=== PATIENT | male | born 1965 | race Caucasian/White ===

== ENCOUNTER → 2016-03-23 | Outpatient (CLI) | payer OTHER ==
[~2016-03-23] MED LIST: ASPI81TA28 PO; HYDR-5688 PO; MRP5 PO; RBX500 PO; SIMV10TA2 PO; ZOLP10TA PO
[2016-03-23 10:56] LABS: BASO % 0.2 %; BASO ABS # 0.01 K/uL (0-0.2); COMPLETE YES; EOS % 4.3 %; HEMATOCRIT 48.7 % (42-52); IG% 0.2 %; LYMPH % 25.5 %; LYMPH ABS # 1.35 K/uL (1.2-3.4); MEAN CORPUSCULAR HEMOGLOBIN 29.1 pg (25-34); MEAN CORPUSCULAR HGB CONC 33.5 g/dl (32-36); MEAN PLATELET VOLUME 11.8 fL (7.4-10.4); NEUT % 62.8 %; PLATELET COUNT 219 K/uL (130-400)
[2016-03-23 11:16] LABS: ALT/SGPT 22 U/L (12-78); AST/SGOT 14 U/L (15-37); BLOOD UREA NITROGEN 16 mg/dl (7-18); BUN/CREATININE RATIO 13.3 (10-20); CALCIUM 9.2 mg/dl (8.5-10.1); CARBON DIOXIDE 29 mmol/L (21-32); CHLORIDE 106 mmol/L (98-107); CHOLESTEROL 204 mg/dl (0-200); GLUCOSE 87 mg/dl (70-99); MAGNESIUM 2.2 mg/dl (1.8-2.4); POTASSIUM 4.7 mmol/L (3.5-5.1); SODIUM 142 mmol/L (136-145); TRIGLYCERIDES 73 mg/dl (0-150); VERY LOW DENSITY LIPOPROT CALC 15 mg/dl
[2016-03-23 11:24] LABS: ALB/GLOB RATIO 1.3 (0.9-2); ALKALINE PHOSPHATASE 39 U/L (45-117); CHOLESTEROL/HDL RATIO 4.1; FERRITIN 84.3 ng/ml (8.0-388.0); HDL CHOLESTEROL 50 mg/dl; LDL CHOLESTEROL CALCULATED 139 mg/dl
== END | disposition home or self-care (01) ==
LOC: C.LABBC 07:25
PROVIDERS: ATTEND Family Medicine
DX: E78.00 Pure hypercholesterolemia, unspecified (principal); R53.83 Other fatigue

== ENCOUNTER → 2016-05-28 | Day surgery (SDC) | payer OTHER ==
[2016-05-13 11:41] VITALS: Ht 172.7 cm; Wt 84.1 kg
[~2016-05-28] VITALS: Ht 172.7 cm; Wt 84.1 kg
[~2016-05-28] MED LIST changes: -ASPI81TA28 PO; +ATROPINE SULFATE 0.1 MG/ML 5ML SYR IV PRN; +BUPIVACAINE/EPINEPHRINE 0.5% MPF 1:200,000 30 ML VIAL ONE; +CEFAZOLIN 2000 MG/60 ML D5W IV SCH; +DEXAMETHASONE SOD INJ 4 MG/ML VIAL IV PRN; +DEXAMETHASONE SOD INJ 4 MG/ML VIAL ONE; +EpHEDrine SULFATE INJ 50 MG/ML AMP IV PRN; +FENTANYL CITRATE INJ 50 MCG/1 ML 2 ML VIAL IV PRN; +FENTANYL CITRATE INJ 50 MCG/1 ML 2 ML VIAL ONE; +HYDROCODONE/ACETAMOPHEN 5/325MG TAB PO PRN; +KETOROLAC TROMETHAMINE 30 MG/ML VIAL IV. PRN; +LABETALOL HCL IV 5 MG/ML 20ML IV PRN; +LACTATED RINGER'S 1000ML 1,000 ML IV SCH; +LIDOCAINE HCL 2% 2 ML VIAL (20MG/ML) ONE; +METOCLOPRAMIDE HCL INJ 5 MG/ML 2 ML VIAL IV PRN; +MIDAZOLAM HCL 1 MG/ML 2ML VIAL ONE; +MoRPHine SULFATE 10 MG/ML CARP/VIAL IV PRN; +ONDANSETRON INJ 2 MG/ML 2 ML VIAL IV PRN; +ONDANSETRON INJ 2 MG/ML 2 ML VIAL ONE; +PHENYLEPHRINE 100MCG/ML 5ML SYR IV PRN; +PROPOFOL IV EMULSION 10 MG/ML 20 ML VIAL IV ONE; -RBX500 PO; +SODIUM CHLORIDE 0.9% 1000ML 1,000 ML IV SCH; -ZOLP10TA PO
--- NOTE | 2016-05-28 09:22 | History & Physical Bridge Note ---
H&P Re-Evaluation Bridge Note: I have examined the patient, reviewed the History & Physical and in the interval since the performance of the History & Physical I have noted the following changes of clinical significance: No changes noted
--- NOTE | 2016-05-28 09:25 | Discharge Instructions-SurgCtr ---
Discharge Instructions Date of Service May 28, 2016. Visit Reason for Visit: Multiple Lipomas Bilateral Arms & Legs Discharge Discharge Diagnosis / Problem: multiple soff tissue masses/lipomas Discharge Goals Goal(s): Decrease discomfort, Improve function, Diagnostic testing, Prevent Disease Progression Activity Recommendations Activity Limitations: as noted below Lifting Limitations: gradually increase as tolerated Exercise/Sports Limitations: until after follow-up appointment Shower/Bathe: no limitations Anesthesia . Post Anesthesia Instructions: If you have had General Anesthesia or IV Sedation: * Do not drive today. * Resume driving when surgeon permits. * Do not make important decisions or sign legal documents today. * Call surgeon for: 1. Temperature elevations greater than 101 degrees F. 2. Uncontrollable pain. 3. Excessive bleeding. 4. Persistent nausea and vomiting. 5. Medication intolerance (nausea, vomiting or rash). * For nausea and vomiting use only clear liquids such as: tea, soda, bouillon until nausea subsides, then gradually increase diet as tolerated. * If you have any concerns or questions, call your surgeon's office. If physician is unavailable and it is an emergency, call 911 or go to the nearest emergency room. . Instructions / Follow-Up Instructions / Follow-Up f/u with dr. solorio in 1-2 weeks. call [phone] for any questions/ concerns Diet Recommendations Home Diet: resume previous diet Pending Studies Studies pending at discharge: yes List of pending studies: path report Medical Emergencies . Who to Call and When: Medical Emergencies: If at any time you feel your situation is an emergency, please call 911 immediately. . Non-Emergent Contact Non-Emergency issues call your: Primary Care Provider, Surgeon Call Non-Emergent contact if: wound has increased drainage, wound has increased redness, wound has increased pain . . "Provider Documentation" section prepared by Ebenezer Solorio.
--- NOTE | 2016-05-28 11:50 | Medical Student: [facility] ---
Immediate Operative Summary Operative Date May 28, 2016. Pre-Operative Diagnosis Multiple Lipomas Post-Operative Diagnosis Same Procedure(s) Performed Excision of multiple lipomas of bilateral arms and legs. Surgeon Dr. Solorio Daylight Driller Surgeon(s) None Estimated Blood Loss 20 cc Findings 5 Lipomas Right Arm 5 Lipomas Left Arm 3 Lipomas Right Leg 1 Lipoma Left Leg Fluids (cc crystalloids) 1500 cc Specimens Right Arm Lipomas x5 Right Leg Lipomas x3 Left Leg Lipoma Left Arm Lipomas x5 Drains None Anesthesia General Complication(s) None Disposition Recovery Room / PACU
--- NOTE | 2016-05-28 11:52 | [facility] Operative Report ---
Operative Report Operative Date May 28, 2016. Pre-Operative Diagnosis Multiple Lipomas bilateral arms and legs Post-Operative Diagnosis as above Procedure(s) Performed excision of multiple lipomas of b/l arms/legs times 14 ranging in size from 1.5 cm to [address] Solorio Animal Shelter Supervisor Surgeon(s) Brittany Hernadez PA-C Estimated Blood Loss 20ML Findings benign appearing lipomas times 14 Specimens A. Left Arm Lipomas x5 B. Left Leg Lipoma x1 C. Right Arm Lipomas x5 D. Right Leg Lipomas x3 Anesthesia LMA Complication(s) None Disposition Recovery Room / PACU I attest to the content of the Intraoperative Record and any orders documented therein. Any exceptions are noted below.
--- NOTE | 2016-05-28 12:18 | Anesthesia Progress Nt - [facility] ---
Anesthesia Post Op Note Date & Time May 28, 2016 at 12:17 Vital Signs Pain Intensity: 0 Vital Signs Past 12 Hours Date Time Temp Pulse Resp B/P Pulse Ox O2 Delivery O2 Flow Rate FiO2 05/28/16 11:47 36.3 57 16 115/67 97 Diffusion Mask 05/28/16 08:15 36.9 64 18 109/84 97 Room Air Notes Mental Status: alert / awake / arousable, participated in evaluation Pt Amnestic to Procedure: Yes Nausea / Vomiting: adequately controlled Pain: adequately controlled Airway Patency, RR, SpO2: stable & adequate BP & HR: stable & adequate Hydration State: stable & adequate Anesthetic Complications: no major complications apparent
--- NOTE | 2016-05-28 12:23 | OPERATIVE REPORT ---
DATE OF OPERATION: 05/28/2016 PREOPERATIVE DIAGNOSIS: Symptomatic lipomas of bilateral arms and bilateral legs totaling 14. POSTOPERATIVE DIAGNOSIS: Same ranging in size from 1.5 cm to 5 cm. PROCEDURE: Excision of multiple lipomas of bilateral arms and legs x14. Left lower arm: 1.5 cm, 1.5 cm, 2 cm, 2.5 cm. Right lower arm: 1.5 cm, 1.5 cm, 2.0 cm, 1.5 cm , 1.5 cm. Left thigh: 2 cm. Right thigh: 1.5 cm, 5 cm, 3 cm. SURGEON: Dr. Solorio. EMPLOYMENT ADVISOR: Patricia Hernadez PA-C. ESTIMATED BLOOD LOSS: Approximately 20 mL. COMPLICATIONS: No immediate. ANESTHESIA: General laryngeal mask airway. OPERATIVE NOTE: After informed consent was obtained, the patient was taken to the operating suite and placed in supine position. We began by prepping and draping by side. We began by prepping and draping the left leg and left arm. Each lipoma was taken out and closed identically. They numbered 5 on the left arm, 1 on the left leg, 5 on the right arm and 3 on the right leg. They measured in size from 1.5 cm to 5 cm. We would find the premarked and palpable lesion and make a direct linear incision directly over top of it. Soft tissue was opened using electrocautery as well as the capsule around the lipomas. The lipomas were all superficial and encapsulated popped right out of the skin after making incision. We would then use electrocautery to detach it from the base and they would be sent to pathology. The wound would then be irrigated and closed using 3-0 Monocryl in an interrupted subcuticular fashion. Marcaine 0.5% with epinephrine would then be injected around the area for postoperative analgesia and Dermabond glue used as a dressing. Again, all 14 of the lesions were removed identically. Once we were finished the patient was awakened, LMA was removed and the patient was transferred to recovery in stable condition. I attest to the content of the Intraoperative Record and any orders documented therein. Any exceptions are noted below. KAILA
[2016-05-28 12:40] VITALS: TEMP 36.4
[2016-05-28 13:05] VITALS: BP 122/76; PULSE 58; O2SAT 99
== END | disposition home or self-care (01) ==
LOC: X.SURG 08:04
PROVIDERS: ATTEND Surgery
DX: D17.21 Benign lipomatous neoplasm of skin and subcutaneous tissue of right arm (principal); D17.22 Benign lipomatous neoplasm of skin and subcutaneous tissue of left arm; D17.23 Benign lipomatous neoplasm of skin and subcutaneous tissue of right leg; D17.24 Benign lipomatous neoplasm of skin and subcutaneous tissue of left leg; E78.5 Hyperlipidemia, unspecified; M79.9 Soft tissue disorder, unspecified; E78.00 Pure hypercholesterolemia, unspecified; G25.81 Restless legs syndrome; G47.30 Sleep apnea, unspecified; E55.9 Vitamin D deficiency, unspecified

== ENCOUNTER → 2017-03-31 | Outpatient (CLI) | payer OTHER ==
[~2017-03-31] MED LIST changes: -ATROPINE SULFATE 0.1 MG/ML 5ML SYR IV PRN; -BUPIVACAINE/EPINEPHRINE 0.5% MPF 1:200,000 30 ML VIAL ONE; -CEFAZOLIN 2000 MG/60 ML D5W IV SCH; -DEXAMETHASONE SOD INJ 4 MG/ML VIAL IV PRN; -DEXAMETHASONE SOD INJ 4 MG/ML VIAL ONE; -EpHEDrine SULFATE INJ 50 MG/ML AMP IV PRN; -FENTANYL CITRATE INJ 50 MCG/1 ML 2 ML VIAL IV PRN; -FENTANYL CITRATE INJ 50 MCG/1 ML 2 ML VIAL ONE; -HYDR-5688 PO; -HYDROCODONE/ACETAMOPHEN 5/325MG TAB PO PRN; -KETOROLAC TROMETHAMINE 30 MG/ML VIAL IV. PRN; -LABETALOL HCL IV 5 MG/ML 20ML IV PRN; -LACTATED RINGER'S 1000ML 1,000 ML IV SCH; -LIDOCAINE HCL 2% 2 ML VIAL (20MG/ML) ONE; -METOCLOPRAMIDE HCL INJ 5 MG/ML 2 ML VIAL IV PRN; -MIDAZOLAM HCL 1 MG/ML 2ML VIAL ONE; -MoRPHine SULFATE 10 MG/ML CARP/VIAL IV PRN; -ONDANSETRON INJ 2 MG/ML 2 ML VIAL IV PRN; -ONDANSETRON INJ 2 MG/ML 2 ML VIAL ONE; -PHENYLEPHRINE 100MCG/ML 5ML SYR IV PRN; -PROPOFOL IV EMULSION 10 MG/ML 20 ML VIAL IV ONE; -SODIUM CHLORIDE 0.9% 1000ML 1,000 ML IV SCH
[2017-03-31 11:39] LABS: ALBUMIN 3.9 gm/dl (3.4-5.0); ALT/SGPT 29 U/L (12-78); AST/SGOT 19 U/L (15-37); BLOOD UREA NITROGEN 17 mg/dl (7-18); CARBON DIOXIDE 29 mmol/L (21-32); GLUCOSE 91 mg/dl (70-99); POTASSIUM 4.4 mmol/L (3.5-5.1); SODIUM 140 mmol/L (136-145)
[2017-03-31 11:42] LABS: ALKALINE PHOSPHATASE 39 U/L (45-117); CHOLESTEROL 217 mg/dl (0-200); LDL CHOLESTEROL CALCULATED 159 mg/dl; TOTAL PROTEIN 6.8 gm/dl (6.4-8.2)
== END | disposition home or self-care (01) ==
LOC: C.LABBC 07:07
PROVIDERS: ATTEND Nurse Practitioner Family
DX: E78.00 Pure hypercholesterolemia, unspecified (principal); E55.9 Vitamin D deficiency, unspecified

== ENCOUNTER → 2017-04-14 | Outpatient (CLI) | payer OTHER | END | disposition home or self-care (01) | LOC: C.LAB1850 06:58 | PROVIDERS: ATTEND Nurse Practitioner Family | DX: G25.81 Restless legs syndrome (principal) ==